=== PATIENT | male | born 1975 | race African-American/Black ===

== ENCOUNTER 2022-05-09 17:36 | Emergency (ER) | payer MEDICAID ==
[~2022-05-09] VITALS: Ht 170.2 cm; Wt 79.0 kg
[2022-05-09 17:38] VITALS: BP 137/92
[2022-05-09] MEDS ORDERED: ALBUTEROL 6.7GM HFA INHALER ORI ONE (18:15)
[2022-05-09] MEDS ORDERED: ACETAMINOPHEN 325MG TABLET PO ONE (18:15)
[2022-05-09] MEDS ORDERED: ALBU6.7H9 INH (19:36)
[2022-05-09] MEDS ORDERED: MED4 MT (19:36)
[2022-05-09] MEDS ORDERED: ACET-2708 MT (19:36)
[2022-05-09] MEDS ORDERED: ACETAMINOPHEN 325MG TABLET PO NR (20:15)
== END 2022-05-09 20:35 | disposition home or self-care (01) ==
LOC: ER 17:36
DX: U07.1 COVID-19 (principal); J20.8 Acute bronchitis due to other specified organisms; E78.00 Pure hypercholesterolemia, unspecified; Z88.6 Allergy status to analgesic agent
CPT/HCPCS: 71045; 87426; 99284; C9803; Z7610

== ENCOUNTER 2023-08-28 13:56 | Emergency (ER) | payer MEDICAID, OTHER ==
[~2023-08-28] VITALS: Ht 170.2 cm; Wt 85.7 kg
[~2023-08-28 13:56] MED LIST: ACET-2708 MT; ALBU6.7H3 INH; MED4 MT
[2023-08-28 14:34] VITALS: BP 137/97; PULSE 78; RESP 20; TEMP 98.2; O2SAT 98
[2023-08-28] MEDS ORDERED: DOXY-456 MT (15:49)
[2023-08-28] MEDS ORDERED: ACET-2708 PO (15:49)
[2023-08-28] MEDS ORDERED: ERYT1OIN6 EACHEYE (15:49)
== END 2023-08-28 16:30 | disposition home or self-care (01) ==
LOC: ER 13:56
DX: H00.012 Hordeolum externum right lower eyelid (principal); H01.002 Unspecified blepharitis right lower eyelid
CPT/HCPCS: 99283